=== PATIENT | female | born 1955 | race African-American/Black ===

== ENCOUNTER 2018-06-28 05:46 | Emergency (ER) | payer SELFPAY ==
[~2018-06-28] VITALS: Ht 165.1 cm; Wt 82.0 kg
[2018-06-28] MEDS ORDERED: ACETAMINOPHEN WITH CODEINE 300/30MG TABLET PO ONE (06:30)
[2018-06-28 07:54] VITALS: BP 134/81
== END 2018-06-28 07:55 | disposition home or self-care (01) ==
LOC: ER 05:46
DX: S00.83XA Contusion of other part of head, initial encounter (principal); S60.512A Abrasion of left hand, initial encounter; I10 Essential (primary) hypertension; Z86.011 Personal history of benign neoplasm of the brain; Z98.890 Other specified postprocedural states; W01.0XXA Fall on same level from slipping, tripping and stumbling without subsequent striking against object, initial encounter; Y93.89 Activity, other specified; Y92.488 Other paved roadways as the place of occurrence of the external cause
CPT/HCPCS: 70450; 70486; 73100; 99284